=== PATIENT | male | born 2000 | race Caucasian/White ===

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

== ENCOUNTER 2018-05-29 17:21 | Emergency (ER) | payer SELFPAY ==
[~2018-05-29] VITALS: Ht 165.1 cm; Wt 57.7 kg
[~2018-05-29 17:21] MED LIST changes: +MOTRIN800 MG PO; +PENICILLN VK500 MG PO; +TRAMADOL HYDROC50 MG PO
[2018-05-29] MEDS ORDERED: AMOXICILLIN500 M2 PO (17:44)
[2018-05-29 17:59] VITALS: BP 128/76
== END 2018-05-29 17:59 | disposition home or self-care (01) | DRG 153 ==
LOC: ED 17:21
DX: J02.9 Acute pharyngitis, unspecified (principal); F84.5 Asperger's syndrome

== ENCOUNTER 2019-06-23 17:36 | Emergency (ER) | payer SELFPAY ==
[~2019-06-23] VITALS: Ht 170.2 cm; Wt 70.0 kg
[~2019-06-23 17:36] MED LIST changes: +AMOXICILLIN500 M2 PO
[2019-06-23 19:04] VITALS: BP 126/76
== END 2019-06-23 19:04 | DRG 580 ==
LOC: ED 17:36
PROC: 0HQQXZZ Repair Finger Nail, External Approach (ICD-10-PCS; principal; 2019-06-23)
DX: S61.214A Laceration without foreign body of right ring finger without damage to nail, initial encounter (principal); S66.126A Laceration of flexor muscle, fascia and tendon of right little finger at wrist and hand level, initial encounter; F84.5 Asperger's syndrome; W26.0XXA Contact with knife, initial encounter; Y92.009 Unspecified place in unspecified non-institutional (private) residence as the place of occurrence of the external cause; Z23 Encounter for immunization

== ENCOUNTER 2019-08-14 13:01 | Emergency (ER) | payer SELFPAY ==
[~2019-08-14] VITALS: Ht 170.2 cm; Wt 55.0 kg
[2019-08-14] MEDS ORDERED: CEPHALEXIN500 M1 PO (16:28)
[2019-08-14 16:35] VITALS: BP 121/69
== END 2019-08-14 16:35 | disposition home or self-care (01) | DRG 605 ==
LOC: ED 13:01
PROC: 0HQLXZZ Repair Left Lower Leg Skin, External Approach (ICD-10-PCS; principal; 2019-08-14)
DX: S81.012A Laceration without foreign body, left knee, initial encounter (principal); W25.XXXA Contact with sharp glass, initial encounter; Y93.E9 Activity, other interior property and clothing maintenance

== ENCOUNTER 2019-08-21 | Emergency (ER) | payer SELFPAY ==
[~2019-08-21] MED LIST changes: +CEPHALEXIN500 M1 PO
== END 2019-08-21 10:59 | disposition home or self-care (01) | DRG 950 ==
DX: S81.012D Laceration without foreign body, left knee, subsequent encounter (principal); X58.XXXD Exposure to other specified factors, subsequent encounter

== ENCOUNTER 2020-04-16 18:06 | Emergency (ER) | payer SELFPAY ==
[~2020-04-16] VITALS: Ht 170.2 cm; Wt 55.0 kg
[2020-04-16 18:45] VITALS: BP 122/69
== END 2020-04-16 18:45 | disposition home or self-care (01) | DRG 951 ==
LOC: ED 18:06
DX: Z03.89 Encounter for observation for other suspected diseases and conditions ruled out (principal)

== ENCOUNTER 2020-06-19 13:51 | Emergency (ER) | payer SELFPAY ==
[~2020-06-19] VITALS: Ht 170.2 cm; Wt 45.0 kg
[2020-06-19] MEDS ORDERED: PENICILLN VK500 MG PO (14:22)
[2020-06-19 14:30] VITALS: BP 129/70
== END 2020-06-19 14:30 | disposition home or self-care (01) | DRG 158 ==
LOC: ED 13:51
DX: K04.7 Periapical abscess without sinus (principal); M84.68XA Pathological fracture in other disease, other site, initial encounter for fracture; K02.9 Dental caries, unspecified

== ENCOUNTER 2020-07-09 18:29 | Emergency (ER) | payer SELFPAY ==
[~2020-07-09] VITALS: Ht 170.2 cm; Wt 55.0 kg
[2020-07-09 20:18] LABS: HEMOGLOBIN 14.9 g/dl (14.0-18.0); IMMATURE GRANULOCYTES 0.3 % (0.0-5.0); MEAN CORPUSCULAR HGB 30.9 pG CALC (26.0-32.0); NEUT# 5.07 thou/uL (1.82-7.42); RED BLOOD COUNT 4.82 mill/uL (4.70-6.10)
[2020-07-09 20:26] LABS: HEMATOCRIT 45.2 % (39.0-50.0); MEAN CELL VOLUME 93.8 fL CALC (80.0-100.0)
[2020-07-09 21:44] VITALS: BP 130/78
--- NOTE | 2020-07-13 13:29 | NUR ---
Patient called for Covid results. Notified him of negative results. Patient requested a copy of his results. 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
== END 2020-07-09 21:50 | disposition home or self-care (01) | DRG 866 ==
LOC: ED 18:29
PROVIDERS: Family Medicine
DX: B34.9 Viral infection, unspecified (principal); F84.5 Asperger's syndrome; Z20.828 Contact with and (suspected) exposure to other viral communicable diseases

== ENCOUNTER 2020-08-31 12:54 | Emergency (ER) | payer SELFPAY ==
[~2020-08-31] VITALS: Ht 170.2 cm; Wt 70.0 kg
[2020-08-31] MEDS ORDERED: ZOFRAN4 MG/TAB PO (16:04)
[2020-08-31 16:24] VITALS: BP 121/60
== END 2020-08-31 16:24 | disposition home or self-care (01) | DRG 866 ==
LOC: ED 12:54
DX: B34.9 Viral infection, unspecified (principal); F84.5 Asperger's syndrome; Z20.822 Contact with and (suspected) exposure to COVID-19

== ENCOUNTER 2020-11-27 10:33 | Emergency (ER) | payer SELFPAY ==
[~2020-11-27 10:33] MED LIST changes: +ZOFRAN4 MG/TAB PO
[2020-11-27] MEDS ORDERED: AMOXICILLIN500 M2 PO (10:58)
[2020-11-27 11:01] VITALS: BP 125/82
== END 2020-11-27 11:01 | disposition home or self-care (01) | DRG 158 ==
LOC: ED 10:33
DX: K03.81 Cracked tooth (principal); F84.5 Asperger's syndrome